=== PATIENT | female | born 1975 | race Caucasian/White ===

== ENCOUNTER 2016-10-12 09:38 | Inpatient (IN) | payer MEDICAID ==
[~2016-10-12] VITALS: Ht 170.2 cm; Wt 68.8 kg
[2016-10-12 10:48] VITALS: Ht 170.2 cm; Wt 68.8 kg
[2016-10-12] MEDS ORDERED: LACTATED RINGER'S 1,000 ML IV SCH (10:56)
[2016-10-12] MEDS ORDERED: OXYTOCIN 30 UNITS/LR 500 ML IV PRN ×2 (11:00→16:30)
[2016-10-12] MEDS ORDERED: CARBOPROST 250 MCG INJ IM PRN ×2 (11:00→16:30)
[2016-10-12] MEDS ORDERED: MISOPROSTOL 200 MCG TAB PR PRN ×2 (11:00→16:30)
[2016-10-12] MEDS ORDERED: CEFAZOLIN 2 GM/50 ML (PMX) 50 ML IV SCH (11:00)
[2016-10-12] MEDS ORDERED: OXYTOCIN 30 UNITS/LR 500 ML IV SCH (11:00)
[2016-10-12] MEDS ORDERED: METHYLERGONOVINE 0.2 MG INJ IM PRN ×2 (11:00→16:30)
[2016-10-12 11:35] LABS: BASOPHILS % 0.3 % (0.0-2.0); EOSINOPHILS # 0.3 10^3/ul (0.0-0.5); EOSINOPHILS % 4.2 % (0.0-7.0); HEMATOCRIT 31.3 % (37.0-47.0); HEMOGLOBIN 10.6 g/dl (12.0-16.0); LYMPHOCYTES # 1.4 10^3/ul (0.8-2.9); LYMPHOCYTES % 19.9 % (15.0-51.0); MEAN CORPUSCULAR HEMOGLOBIN 30.1 pg (29.0-33.0); MEAN CORPUSCULAR HGB CONC 33.9 g/dl (32.0-37.0); MEAN CORPUSCULAR VOLUME 88.8 fl (82.0-101.0); MEAN PLATELET VOLUME 7.9 fl (7.4-10.4); MONOCYTE # 0.4 10^3/ul (0.3-0.9); NEUTROPHIL # 5.1 10^3/ul (1.6-7.5); NEUTROPHILS % 70.6 % (39.0-77.0); PLATELET COUNT 166 10^3/UL (140-440); RED BLOOD COUNT 3.52 10^6/ul (4.20-5.40); RED CELL DISTRIBUTION WIDTH 14.5 % (11.5-14.5); UNCORRECTED WBC 7.3 10^3/ul (4.8-10.8); WHITE BLOOD COUNT 7.3 10^3/ul (4.8-10.8)
[2016-10-12 11:42] LABS: CONDITION 1; LH ANALYZER COMMENTS 1
[2016-10-12 11:47] VITALS: BP 119/69; PULSE 74; RESP 18
[2016-10-12 11:51] LABS: INR 0.94; PROTIME 12.6 Sec (12.2-14.2)
[2016-10-12 11:52] LABS: PARTIAL THROMBOPLASTIN TIME 28.5 Sec (25.0-35.0)
[2016-10-12] MEDS ORDERED: FENTAnyl 50 MCG/ML VIAL ONE (12:00)
[2016-10-12] MEDS ORDERED: morphine SULFATE/PF (10 MG/10 ML) INJ ONE (12:00)
[2016-10-12] MEDS ORDERED: PHENYLephrine (100 MCG/ML) 5ML SYG ONE (12:00)
--- NOTE | 2016-10-12 12:18 | HP ---
Date/Time of Note Date/Time of Note DATE: 10/12/16 TIME: 12:12 OB - History Hx of Present Free Text/Dictation 41 years old white female 1 para 0 EDC of October 19 39 weeks requesting elective section due to phobia of labor pain complications may arise from was sensitivity discussed with the pain and she would like to proceed with the delivery This patient has been under the care of [facility] and her course using the limited number of the visit was complicated with gestational diabetes or -induced hypertension She is not allergic to any known medication Denies smoking or drinking Past history unremarkable no previous hospitalization for any medical or surgical conditions Review of system within Estimated Due Date: Oct 19, 2016 : 1 Para: 0 Care: Limited Care Ultrasounds: Normal mid trimester US Obstetrical Complications: None Medical Complications: None Past Family/Social History * Past Medical, Surgical, Family and Obstetric Histories reviewed from chart. Rubella: immune RPR/VDRL: Negative GBS Status: Negative OB Admission Exam Vital Signs Vital Signs Vital Signs Date Time Temp Pulse Resp B/P Pulse Ox O2 Delivery O2 Flow Rate FiO2 10/12/16 11:47 98.0 74 18 119/69 Room Air Physical Exam HEENT: WNL Heart: Rhythm Normal Lungs: Clear, Equal Abdomen: WNL Extremities: Normal Reflexes: Normal Cervical Dilatation: None Effacement: 0% Station: -2 Membranes: Intact Heart Rate: 130's Accelerations: Accelerations Present Decelerations: No Decelerations Varibility: Moderate Contractions on Admission: None Last 72 hours Lab Results CBC & BMP 10/12/16 11:00 TISHA GAY MD Oct 12, 2016 12:17
[2016-10-12] MEDS ORDERED: ONDANSETRON 4 MG INJ ONE (12:30)
[2016-10-12] MEDS ORDERED: DEXAMETHASONE 4 MG/ML 1 ML INJ ONE (12:30)
[2016-10-12] MEDS ORDERED: DIPHENHYDRAMINE 50 MG INJ ONE (12:30)
[2016-10-12] MEDS ORDERED: MIDAZOLAM 1 MG/ML 2 ML INJ ONE (12:31)
[2016-10-12] MEDS ORDERED: ONDANSETRON 4 MG INJ IV PRN (13:30)
[2016-10-12] MEDS ORDERED: DIPHENHYDRAMINE 50 MG INJ IV PRN (13:30)
[2016-10-12] MEDS ORDERED: ZOLPIDEM 5 MG TAB PO PRN (13:30)
[2016-10-12] MEDS ORDERED: HYDROmorphONE 1 MG/ML SYG IV PRN ×2 (13:30)
[2016-10-12] MEDS ORDERED: NALOXONE (0.4 MG/ML) INJ IV PRN (13:30)
--- NOTE | 2016-10-12 13:55 | OPPN ---
Date/Time of Note Date/Time of Note DATE: 10/12/16 TIME: 13:53 Operative/Procedure Note 39 weeks patient request for delivery declined all of labor Pre-Operative Diagnosis Same as above Post-Operative Diagnosis Same as above Procedure Primary Surgeon: TISHA GAY MD Agency Recruiter: MARTIN ZAMUDIO MD Anesthesiologist: SADA BANG DO Findings Live baby girl 9 and 9 Implants/Grafts: Not applicable Estimated blood loss: other (600 mL) Drains: Not applicable Specimens: Not Applicable Complications: None Anesthesia type: spinal TISHA GAY MD Oct 12, 2016 13:55
[2016-10-12] MEDS: OXYTOCIN 30 UNITS/LR 500 ML IV SCH ×2 (16:03→22:13)
[2016-10-12 16:10] VITALS: BP 130/65; PULSE 71; RESP 18
--- NOTE | 2016-10-12 16:15 | OPR ---
DATE OF OPERATION: 10/12/2016 PREOPERATIVE DIAGNOSES: 1. Intrauterine at 39 weeks' gestation. 2. Patient requests for section delivery, declined trial of labor. POSTOPERATIVE DIAGNOSES: 1. Intrauterine at 39 weeks' gestation. 2. Patient requests for section delivery, declined trial of labor. OPERATION PERFORMED: Primary transverse low cervical section. SURGEON: Tisha Vizcarra MD SERVICE ORDER CLERK: DR ZAMUDIO ANESTHESIA: Spinal. ANESTHESIOLOGIST: Dr. Shoemaker. FINDINGS: Live baby girl with the 9 and 9. DETAILS OF THE PROCEDURE: Under satisfactory spinal anesthesia, the patient was prepped and draped and placed in supine position, tilted to the left. Pfannenstiel incision was made, incision carried through the subcutaneous tissue. Bleeders brought under control with electrocautery. Fascia incised to the length of the incision. Rectus muscle divided in midline. Peritoneum exposed, entered through a transverse incision. Exploration of abdomen revealed a gravid uterus with normal appearing tubes and ovaries. Bladder flap was developed. Transverse incision was made in the lower segment of the uterus. Amniotic sac ruptured. Clear amniotic fluid noted. Live baby girl was delivered from unengaged vertex with a nuchal cord x1 around the baby's neck. Nasal oropharyngeal suction was performed. Baby handed to the team for immediate attention. Patient received 20 units of Pitocin. Placenta delivered manually intact. Uterine cavity cleaned with wet sponge and drainage established. Uterus closed in 2 layers using Monocryl #1 in continuous fashion. Peritoneal cavity was irrigated with warm saline. Sponge, needle and instrument reported to be correct. Abdominal peritoneum closed with 2-0 chromic catgut continuously. Rectus muscle approximated with several interrupted 2-0 chromic catgut. Fascia closed with #1 PDS in a continuous fashion. Subcutaneous tissue approximated with interrupted 2-0 chromic catgut. Skin closed with 3-0 Monocryl in subcuticular fashion. Estimated blood loss 600 mL. Urine bag contained 200 mL of clear urine. Patient tolerated procedure well, transferred to recovery room in a good condition. Dictated By: TISHA ROB/KRAIG Conf#: [id number] DID#: [id number] MTDYoung
[2016-10-12] MEDS ORDERED: LANOLIN 7 GM TUBE TOP PRN (16:30)
[2016-10-12] MEDS ORDERED: CEFAZOLIN 1 GM/50 ML (PMX) 50 ML IVPB SCH (16:30)
[2016-10-12] MEDS ORDERED: OXYCODONE/ACETAMINOPHEN (5/325) TAB PO PRN ×2 (16:30)
[2016-10-12] MEDS ORDERED: ACETAMINOPHEN/CODEINE #3 TAB PO PRN ×2 (16:30)
[2016-10-12 16:43] VITALS: BP 128/72; PULSE 80; RESP 17
--- NOTE | 2016-10-12 17:54 | OPRPT ---
Intraop Record Datetime Report Generated by CPN: 10/12/2016 17:53 Datetime: 10/12/2016 11:55 OR Number: 2 TIMES/PROCEDURE Arrive OR: 10/12/2016 12:01 Depart OR: 10/12/2016 13:26 Anesthesia Start: 10/12/2016 12:01 Anesthesia End: 10/12/2016 13:29 Surgery Start: 10/12/2016 12:29 Surgery End: 10/12/2016 13:16 Preoperative Dx: PRIMARY CAESAREAN SECTION ELECTIVE Surgical Procedure: Section Postoperative Dx: PRIMARY CAESAREAN SCTION C/S Decision Time: 10/12/2016 11:30 C/S Decision to Incision (min): 59 Uterine Incision: 10/12/2016 12:32 PERSONNEL Surgeon: Ingrid Vizcarra Scrub: Sapphire Bourne Anesthesia Care Provider: Sukhwinder Shoemaker Care: See Delivery Summary for Infant Care Providers Anesthesia Type: Spinal ASA Level: II RISK FOR INJURY Mode of Arrival: Ambulate Procedure Time Out: Correct Patient Identity; Correct Side and Site are Marked (if applicable); Acc urate Procedure Consent Form; Agreement on Procedure to be Done; Correct Patient Position; Relevant Images and Results are Properly Labeled and Displayed; Addressed Need to Administer Antibiotics or F luids for Irrigation; Safety Precautions Based on Patient History or Medication Use; Allergies Revie wed Preoperative Information: Preoperative Checklist Reviewed; Allergies Reviewed; NPO Status Verified RISK FOR ANXIETY/KNOW DEFICIT Emotional Status: Calm/Relaxed Interventions: Provided Education Based on Age and Identified Needs; Communicated Patient Concerns to Appropriate Members of the Health Care Team; Explained Sequence of Events and Perioperative Routi ne; Evaluated Response to Instructions RISK FOR PAIN Pain Teaching: Instructed on Pain Scale Pain Scale: 0.0 Pain Location: 2 PREOPERATIVE OUTCOMES Preoperative Outcomes: Verbalizes/Indicates Decreased Anxiety, Ability to [place], Understanding of Pr ocedure and Sequence of Events. Questions Answered; Demonstrates Adequate Pain Management; Verbaliz es Comfort Related to Transfer/Transport RISK FOR INFECTION Skin Pre-Operative Site: Intact Clip: Clip Clip Location: Closed lower abdomen Prep: Yes Prep By: SIGIFREDO AGUILAR Prep Solution: Chlorohexadine Catheter: [place] Catheter Size: 16 Catheter Inserted By: SIGIFREDO AGUILARgravity prospector Wound Class: I-Clean Dressing Type: Secured Gauze Risk for Impaired Skin Integrity Position in OR: Supine Bony Prominences Protection: N/A Positioning Devices: N/A Risk for Hypothermia Warming Interventions: Warm [place](s); Warm Irrigation Risk for Injury Safety Straps Applied: Legs Sequential Compression Device: Yes Electrosurgical Unit: Yes Electrosurgical Unit Number: [id number] Bipolar Number: [id number] Ground Pad Location: Right Lateral Thigh Coag Number: 50 Cut Number: 50 1st Count Sponge Count: Correct Needle Count: Correct Blade Count: Correct Instrument Count: Correct 2nd Count Sponge Count: Correct Needle Count: Correct Blade Count: Correct Instrument Count: Correct 3rd Count Sponge Count: Correct Needle Count: Correct Blade Count: Correct Instrument Count: Correct Final Count Sponge Count 4: Correct Needle Count 4: Correct Blade Count 4: Correct Instrument Count 4: Correct Surgeon Acknowledged Count: Yes Final Count Resolution: Count Correct Intraoperative Data Equipment: Non-Invasive Blood Pressure; Pulse Oximeter; EKG Blood Products Given: No Implants/Prosthesis Implants/Prosthesis: N/A Grafts: N/A Irrigation Irrigants: NACL; Sterile H2O Specimens Specimens: N/A Cultures Cultures: N/A Datetime: 10/12/2016 10:47 Drug Allergies/Reactions: No Known Drug Allergies (10/12/2016) Datetime: 10/12/2016 10:05 Food Allergies/Reactions: DENIES Latex Allergies/Reactions: No Latex Allergies
--- NOTE | 2016-10-12 17:54 | DELSUM ---
Delivery Summary A-C Datetime Report Generated by CPN: 10/12/2016 17:53 DELIVERY PERSONNEL Lead Sewage Plant Operator: Jamari, Alessia MATERNAL INFORMATION Delivery Anesthesia: Spinal Medications in Delivery: DURAMORPH ; OXYT 30 UNITS SEE ANESTHESIA RECORD Estimated Blood Loss (ml): 900 Placenta Cultured: No Maternal Complications: None RN Comments: TISSUE (CORD)AND CORD BLOOD COLLECTION LABOR SUMMARY EDC: 10/19/2016 00:00 No. Babies in Womb: 1 Attempted: No Labor Anesthesia: None LABOR INFORMATION Reason for Induction: Not Applicable Oxytocin: N/A Group B Beta Strep: Not Done Antibiotics # of Doses: 1 Antibiotics Time of Last Dose: 1221 Steroids Given: None Reason Steroids Not Administered: Not Applicable MEMBRANES Membranes Rupture Method: Artificial Rupture of Membranes: 10/12/2016 12:33 Length of Rupture (hr): 0.02 Amniotic Fluid Color: Clear Amniotic Fluid Amount: Moderate Amniotic Fluid Odor: Normal STAGES OF LABOR Stage 3 hr: 0 Stage 3 min: 1 CSECTION DELIVERY Primary Indication: Other Other Primary Indication: PRIMARY ELECTIVE Secondary Indication: Other Other Secondary Indication: PRIMARY ELECTIVE CSection Urgency: N/A CSection Incidence: N/A Labor: N/A Elective: N/A CSection Incision: Lower Uterine Transverse BABY A INFORMATION Infant Delivery Date/Time: 10/12/2016 12:34 Method of Delivery: Born in Route : No : N/A (Annotations: Data stored by [facility] on behalf of user) Forceps: N/A Vacuum Extraction: N/A Shoulder Dystocia : No SHOULDER DYSTOCIA BABY A Delivery Date/Time: 10/12/2016 12:34 PRESENTATION/POSITION BABY A Presentation: Cephalic Cephalic Presentation: Vertex Vertex Position: Left Occipital Posterior Breech Presentation: N/A PLACENTA INFORMATION BABY A Placenta Delivery Time : 10/12/2016 12:35 Placenta Method of Delivery: Manual Removal Placenta Status: Delivered SCORES BABY A Heart Rate 1 min: >100 bpm Resp Effort 1 min: Good Cry Reflex Irritability 1 min: Cough/Sneeze/Pulls Away Muscle Tone 1 min: Active Motion Color 1 min: Body [place], Extremit Blue Resuscitation Effort 1 min: Tactile Stimulation SCORE 1 MIN: 9 Heart Rate 5 min: >100 bpm Resp Effort 5 min: Good Cry Reflex Irritability 5 min: Cough/Sneeze/Pulls Away Muscle Tone 5 min: Active Motion Color 5 min: Body [place], Extremit Blue Resuscitation Effort 5 min: Tactile Stimulation SCORE 5 MIN: 9 INFANT INFORMATION BABY A Gestational Age at Delivery: 39.0 Gestational Status: Full Term- 39- 40.6 Weeks Outcome : Liveborn Infant Condition : Stable Sex: Female IDENTIFICATION/MEDS BABY A ID Band Location: Right Leg; Left Arm Sensor Number: [id number] Sensor Location : Cord Clamp Vitamin K Given : Not Given Erythromycin Given: Not Given WEIGHT/LENGTH BABY A Birthweight (gm): 3415 Weight (lb): 7 Infant Weight (oz): 8 Infant Length (in): 20.00 Length (cm): 50.80 CORD INFORMATION BABY A No. Cord Vessels: 3 Nuchal Cord : Around Neck x1, Loose Cord Blood Taken: Yes Suction: Mouth; Nose ASSESSMENT BABY A Complications: None Physical Findings at Delivery: Within Normal Limits Respirations: Appears Normal Bearing Maker/ALS Called : No Transferred To: Remains with Mother
[2016-10-12 19:45] VITALS: BP 119/72; PULSE 73; RESP 18
[2016-10-13] VITALS: BP 118/65; PULSE 73; RESP 18
[2016-10-13] MEDS: OXYTOCIN 30 UNITS/LR 500 ML IV SCH (00:03)
[2016-10-13 03:56] VITALS: BP 115/59; PULSE 73; RESP 18
[2016-10-13] MEDS: KETOROLAC 30 MG INJ IV PRN ×2 (05:41→12:39)
[2016-10-13 07:31] LABS: BASOPHILS % 0.4 % (0.0-2.0); EOSINOPHILS # 0.2 10^3/ul (0.0-0.5); EOSINOPHILS % 1.9 % (0.0-7.0); HEMATOCRIT 26.3 % (37.0-47.0); HEMOGLOBIN 9.1 g/dl (12.0-16.0); LYMPHOCYTES # 1.5 10^3/ul (0.8-2.9); LYMPHOCYTES % 13.9 % (15.0-51.0); MEAN CORPUSCULAR HEMOGLOBIN 30.4 pg (29.0-33.0); MEAN CORPUSCULAR HGB CONC 34.6 g/dl (32.0-37.0); MEAN CORPUSCULAR VOLUME 87.8 fl (82.0-101.0); MEAN PLATELET VOLUME 7.9 fl (7.4-10.4); MONOCYTE # 0.6 10^3/ul (0.3-0.9); MONOCYTES % 5.9 % (0.0-11.0); NEUTROPHIL # 8.6 10^3/ul (1.6-7.5); NEUTROPHILS % 77.9 % (39.0-77.0); PLATELET COUNT 134 10^3/UL (140-440); RED CELL DISTRIBUTION WIDTH 14.4 % (11.5-14.5); UNCORRECTED WBC 11.1 10^3/ul (4.8-10.8); WHITE BLOOD COUNT 11.1 10^3/ul (4.8-10.8)
[2016-10-13 07:41] LABS: CONDITION 1
[2016-10-13 07:55] VITALS: BP 98/53; PULSE 70; RESP 18
[2016-10-13 12:00] VITALS: BP 102/59; PULSE 81; RESP 16
[2016-10-13] MEDS: IBUPROFEN 600 MG TAB PO SCH ×2 (12:00→18:45)
[2016-10-13 16:00] VITALS: BP 125/58; PULSE 86; RESP 16
[2016-10-13 20:00] VITALS: BP 112/57; PULSE 83; RESP 18
[2016-10-13] MEDS: SENNA/DOCUSATE NA (8.6MG/50MG) TAB PO SCH (21:09)
--- NOTE | 2016-10-13 23:37 | PN ---
Date/Time of Note Date/Time of Note DATE: 10/13/16 TIME: 23:33 OB Subjective Subjective Subjective patient doing well; no complaints; able to eat, void, pass flatus OB Objective Objective Objective Abdomen- fundus firm; bandage still over incision Perineum- scant lochia Ext- no edema OB Assessment/Plan Other Assessment: 41 yo , s/p elective c/d, POD #1, doing well Other plan: Routine post-op care patient to remove her bandage when she showers tomorrow BELKIS FRY MD Oct 13, 2016 23:37
[2016-10-14] MEDS: IBUPROFEN 600 MG TAB PO SCH ×4 (00:10→18:27)
[2016-10-14 04:37] VITALS: BP 122/57; PULSE 69; RESP 18
[2016-10-14 08:20] VITALS: BP 107/59; PULSE 78; RESP 17
[2016-10-14] MEDS: SENNA/DOCUSATE NA (8.6MG/50MG) TAB PO SCH ×2 (08:42→20:14)
--- NOTE | 2016-10-14 13:40 | PN ---
Date/Time of Note Date/Time of Note DATE: 10/14/16 TIME: 13:38 OB Subjective Subjective Subjective Post day 2 Vital sign a stable afebrile abdomen soft incision dry ambulating comfortably bowel sounds present no movement enema recommended TISHA GAY MD Oct 14, 2016 13:39
[2016-10-14] MEDS ORDERED: NA PHOSPHATE/BIPHOS 133 ML ENEMA PR ONE (14:00)
[2016-10-14 20:00] VITALS: BP 123/69; PULSE 92; RESP 18
[2016-10-15] MEDS: IBUPROFEN 600 MG TAB PO SCH ×3 (00:15→12:40)
[2016-10-15 07:50] VITALS: BP 115/64; PULSE 73; RESP 16
[2016-10-15] MEDS ORDERED: DIPHTH/TET/ACEL PERTUSS (ADULT) 0.5 ML VIAL IM* ONE (09:00)
[2016-10-15] MEDS: SENNA/DOCUSATE NA (8.6MG/50MG) TAB PO SCH (10:00)
--- NOTE | 2016-10-15 11:57 | DS ---
Date/Time of Note Date/Time of Note DATE: 10/15/16 TIME: 11:53 Obstetrical Discharge Record Final Diagnosis Final Diagnosis: Term delivered Section Section: Primary Condition on Discharge Physical Assessment Last Vitals: Vital sign is stable afebrile abdomen soft incision dry healing well had normal bowel movement is being discharged with a follow-up instructions to be seen in the office in 1 week , at the time of discharge patient given prescription of Motrin and Tylenol 3 Voiding: Yes Bowel Movement: Yes Breast: Filling Fundus: Firm Abdomen and Incision: Healing well clean dry Calf Tenderness: No Patient Condition: Good TISHA GAY MD Oct 15, 2016 11:57
== END 2016-10-15 14:40 | disposition home or self-care (01) | DRG 766 ==
LOC: L-D 09:38 → PP1 16:10
PROVIDERS: ADMIT Obstetrics & Gynecology; ATTEND Obstetrics & Gynecology
PROC: 10D00Z1 Extraction of Products of Conception, Low, Open Approach (ICD-10-PCS; principal; 2016-10-12 12:30)
DX: O75.82 Onset (spontaneous) of labor after 37 completed weeks of gestation but before 39 completed weeks gestation, with delivery by (planned) cesarean section (principal); Z37.0 Single live birth; Z3A.39 39 weeks gestation of pregnancy
CPT/HCPCS: 85025; 85610; 85730; 86592; 86703; 86850; 86900; 86901; 90715; 94760; 99464; J0690; J1100; J1200; J1885; J2210; J2250; J2274; J2370; J2405; J2590; J3010; J7120